=== PATIENT | female | born 1950 | race African-American/Black ===

== ENCOUNTER 2017-02-20 05:11 | Inpatient (IN) | payer MEDICARE, BC ==
[2017-02-08 10:15] LABS: BASOPHILS 0.2 %; BASOPHILS ABSOLUTE 0.01 10/3/uL (0.0-0.16); EOSINOPHILS 0.6 %; EOSINOPHILS ABSOLUTE 0.03 10/3/uL (0.0-0.53); HEMATOCRIT 38.2 % (36.0-48.0); HEMOGLOBIN 12.3 g/dL (12.0-16.0); IMMATURE GRANULOCYTES 0.4 %; IMMATURE GRANULOCYTES ABSOLUTE 0.02 10/3/uL (0.0-0.11); LYMPHOCYTES 17.4 %; LYMPHOCYTES ABSOLUTE 0.95 10/3/uL (0.67-4.30); MEAN CORPUS HGB CONC 32.2 g/dL (32.0-36.0); MEAN CORPUSCULAR HEMOGLOB 28.7 pg (26.0-34.0); MEAN CORPUSCULAR VOLUME 89.3 fL (80-100); MEAN PLATELET VOLUME 9.1 fL (9.2-13.0); MONOCYTES 6.1 %; MONOCYTES ABSOLUTE 0.33 10/3/uL (0.21-1.20); NEUTROPHILS 75.3 %; NEUTROPHILS ABSOLUTE 4.11 10/3/uL (2.02-8.40); PLATELET COUNT 271 10/3/uL (150-400); RBC DISTRIBUTION WIDTH 14.6 % (12.0-16.0); RED CELL COUNT 4.28 10/6/uL (4.0-5.6); WHITE BLOOD CELLS 5.5 10/3/uL (4.5-10.5)
[2017-02-08 10:20] LABS: MANUAL DIFF NO %
[2017-02-08 10:21] LABS: PROTIME (NOT ORD) 13.5 SEC (12.0-14.5)
[2017-02-08 10:36] LABS: A/G RATIO 0.9 (0.7-1.9); ALBUMIN 3.5 G/DL (3.5-5.0); ALKALINE PHOSPHATASE 94 U/L (45-117); BUN (BLOOD UREA NITROGEN) 17 MG/DL (6-23); CALCIUM, SERUM 8.8 MG/DL (8.5-10.4); CHLORIDE, SERUM 108 MMOL/L (96-112); CO2 (CARBON DIOXIDE) 27 MMOL/L (24-34); CREATININE 0.68 MG/DL (0.55-1.02); GFR AFRICAN AMERICAN 104 ML/MIN (>=60); GFR NON AFRICAN AMERICAN 90 ML/MIN (>=60); GLOBULIN 3.9 G/DL (2.5-4.1); GLUCOSE, SERUM 99 MG/DL (60-99); POTASSIUM, SERUM 4.6 MMOL/L (3.5-5.3); SGOT(AST) 13 U/L (5-40); SGPT(ALT) 28 U/L (5-65); SODIUM, SERUM 142 MMOL/L (135-148); TOTAL BILIRUBIN 0.2 MG/DL (0-1.2); TOTAL PROTEIN 7.4 G/DL (6.0-8.5)
[2017-02-08 10:43] LABS: ASCORBIC ACID (UR NOT ORDER) NEG (NEG); BILIRUBIN, URINE NEGATIVE (NEG); KETONE, URINE NEGATIVE (NEG); LEUKOCYTE ESTERASE(NOT OR SMALL (NEG); WBC (NOT ORDERED) (RFLEX) 21 (0-5)
--- NOTE | ~2017-02-20 | DS ---
Discharge Summary [facility] [address] [place]. [address] NAME: CINDI SOLOMON : 46 STATUS : DIS IN PAT#: [id number] AGE: 66 ADM/REG DATE : 02/20/17 MR#: [id number] REPORT SERV DATE: 03/01/17 DICTATED BY: FAMILIA COLES DATE: 02/28/17 REPORT STATUS : Draft TRANSCRIBED BY: [place] DATE: 02/28/17 Data Collection from hospitalization DISCHARGE DIAGNOSES: 1. Severe varus osteoarthritis of the right knee. 2. Gastroesophageal reflux disease. 3. Hiatal hernia. 4. Hyperlipidemia. 5. History of breast cancer in 2011, status post chemo and radiation therapy. 6. Nzm-dhafsac-mkiudcohl diabetes mellitus. 7. Obesity. 8. Hypertension. CONSULTATIONS: None. PROCEDURES PERFORMED: Right total knee arthroplasty, 02/20/2017. PATHOLOGY: MEDICATIONS: Arimidex 1 mg daily, Caltrate 600 mg twice daily, vitamin D3 of 5000 units daily, ferrous sulfate 325 mg daily, Xalatan 1 drop both eyes at bedtime, Prinivil 10 mg every morning, multiple vitamin without minerals 1 daily, Glucophage 1000 mg with breakfast and supper, Coumadin as directed, Prevacid 30 mg daily, Crestor 10 mg at bedtime, fish oil 1000 mg daily, vitamin B12 of 250 mcg daily, hydrocodone 7.5/325 one or two every 4 to 6 hours as needed, and Zofran 4 mg every 6 hours as needed. CONDITION AT DISCHARGE: Upon discharge, she did appear to be doing well and had no complaints. DISPOSITION: She was discharged home to continue an 1800-calorie ADA diet with activity as discussed. FOLLOWUP: She was to follow up with me in [facility] office on 03/07/2017, [facility] 02/25/2017, follow up with the [facility] for lab work to adjust Coumadin on 02/25/2017. HOSPITAL COURSE: This 66-year-old female was seen in the clinic with severe varus osteoarthritis of the right knee. She had an unremitting pain which had been refractory to medical management. She presented requesting a right total knee arthroplasty. The risks and benefits of surgery were discussed with the patient. She was agreeable to proceed. She was admitted for this and further treatment. Upon admission to the hospital, she had been taken to the operating room where she did undergo the above procedure. She tolerated this well was transferred to the recovery room. On postop day #1, she did appear to be doing well and had been evaluated by Physical Therapy. She had been placed on oral pain medications and was felt to be medically stable. On postop day #2, she continued to do well and had no new complaints. On postop day #3, her INR was at 1.5. She did have complaints of the pain medications making her nauseated and too sleepy and did state that she could not take hydrocodone and that tramadol was not strong enough. Her pain medications were Discharge Summary [facility] [id number] [facility] [place]. [address] NAME: CINDI SOLOMON : 46 STATUS : DIS IN PAT#: [id number] AGE: 66 ADM/REG DATE : 02/20/17 MR#: [id number] REPORT SERV DATE: 03/01/17 DICTATED BY: FAMILIA COLES DATE: 02/28/17 REPORT STATUS : Draft TRANSCRIBED BY: [place] DATE: 02/28/17 therefore changed. She did continue to do well and was then discharged on 02/23/2017 with the above instructions. Information collected by: Laurence MartinezH.I.T. I submit the above information as my discharge summary. RAFAELA/[place] Familia Coles M.D. / [id number] CC: Vi Gutierrez STEVEN NICHOLAS
--- NOTE | ~2017-02-20 | OP ---
Record Of Operation [facility] [address] [place]. [address] NAME: CINDI SOLOMON : 46 STATUS : ADM IN [facility]#: [id number] AGE: 66 ADM/REG DATE : 02/20/17 MR#: [id number] REPORT SERV DATE: 02/20/17 DICTATED BY: FAMILIA COLES DATE: 02/20/17 REPORT STATUS : Draft TRANSCRIBED BY: MODL DATE: 02/20/17 DATE OF PROCEDURE: 02/20/2017 PREOPERATIVE DIAGNOSIS: Severe varus osteoarthritis of the right knee. POSTOPERATIVE DIAGNOSIS: Severe varus osteoarthritis of the right knee. PROCEDURE: Right total knee arthroplasty. SURGEON: Familia Coles M.D. [employer]: Peter Cuba. ANESTHESIA: Spinal with MAC. ESTIMATED BLOOD LOSS: 100 mL. COMPLICATIONS: None. DRAINS: ConstaVac x1. TOURNIQUET TIME: Approximately 70 minutes. IMPLANTS: [employer] Ellis Attune size 4 posterior stabilized right femoral component, a size 3 modular tibial tray, with a 6 mm thick posterior stabilized tibial polyethylene insert, the patella was a 35 mm patella. All components were cemented in place with [employer] Simplex bead set bone cement. INDICATIONS FOR SURGERY: The patient is a 66-year-old female with severe varus osteoarthritis of the right knee. She has had unremitting pain, which has been refractory to medical management. She presents requesting the above-mentioned procedure. Risks of the procedure as detailed in the history and physical, and operative consent were discussed prior to proceeding. She fully understood and has requested to proceed. DESCRIPTION OF PROCEDURE: The patient was brought to the operating room and after induction of anesthesia, was positioned in the supine position. All appropriate pressure points were padded. The operative knee was then prepped and draped in the usual sterile fashion. Time out was performed confirming the appropriate surgical side and site. The leg was exsanguinated with an Linwood wrap and the tourniquet inflated to 350 mmHg pressure. A medial parapatellar approach to the knee was performed. The skin and cutaneous tissues were incised sharply in the midline with a #10 blade. Electrocautery was used as needed to maintain hemostasis. The retinaculum was divided and the extensor mechanism exposed. A median parapatellar arthrotomy was carried out. The medial tibia was exposed subperiosteally and the patellofemoral ligaments divided. The patella was then subluxated laterally and the knee carefully flexed. The knee was Record Of Operation [facility] [id number] [place]. [address] NAME: CINDI SOLOMON : 46 STATUS : ADM IN PAT#: [id number] AGE: 66 ADM/REG DATE : 02/20/17 MR#: [id number] REPORT SERV DATE: 02/20/17 DICTATED BY: FAMILIA COLES DATE: 02/20/17 REPORT STATUS : Draft TRANSCRIBED BY: OH DATE: 02/20/17 d brided of all osteophytes, meniscal remnants in the anterior and posterior cruciate ligaments. Attention was then turned to the distal femur. The intramedullary guide was set at 5 degrees of valgus and secured to the distal femur. The distal femoral resection was then carried out. The femur was then sized to the appropriate block as determined intraoperatively and from templating. The AP cutting block was secured in such a way as to create matched distal and posterior femoral resections in the appropriate rotation. The anterior and posterior femoral cuts were made, chamfer cuts were completed and the box was created for the posterior stabilized femoral component. Attention was then turned to the tibia. The extramedullary alignment guide was set a neutral varus/valgus to match the patient's [place] posterior tibial slope. The tibia was resected, removing 2 to 3 mm, from the most affected side. The tibial fragment was then removed. Attention was then turned to the posterior aspect of the knee and any remaining posterior femoral osteophytes or meniscal remnants were d brided. The patella was then everted and a uniform resection created taking the thickness of the planned patellar component. The cut was checked with a caliper to be sure of the appropriate resection level. The patella was then finally sized and three holes drilled for an oval domed three peg patella. At this point, the varus/valgus alignment of the knee was accessed. The appropriate releases were performed to balance the knee. A trial reduction was performed. The knee came to a full extension. There was 2 to 3 mm of opening to both varus and valgus stress at 30 and 90 degrees of flexion and normal patellar tracking. At this point, all trial components were removed and the final tibial preparation performed. The bony surfaces were copiously irrigated with normal saline and dried and the final components cemented in place. Once the cement had fully cured, the knee was carefully inspected and all extruded cement fragments were removed. A trial reduction was once again performed. Range of motion and stability of the knee were unchanged. The true tibial insert was then impacted in the clean tibial tray. A drain was placed deep through the arthrotomy and the knee was once again irrigated with pulsatile lavage normal saline. The arthrotomy was repaired using interrupted 1-0 Vicryl suture in a [id number] fashion. The subcutaneous tissues were approximated with interrupted 2-0 Vicryl suture, the skin stapled. A sterile dressing was applied. The tourniquet was deflated and the patient was taken to the Recovery Room in stable condition. POSTOP PLAN: The patient is to be weightbearing as tolerated with physical therapy to be started per total knee arthroplasty protocol. The patient will be on Coumadin and mechanical deep venous thrombosis prophylaxis. HARIS/[place] Familia Record Of Operation [address] [address] NAME: CINDI SOLOMON : 46 STATUS : ADM IN [facility]#: [id number] AGE: 66 ADM/REG DATE : 02/20/17 MR#: [id number] REPORT SERV DATE: 02/20/17 DICTATED BY: FAMILIA COLES DATE: 02/20/17 REPORT STATUS : Draft TRANSCRIBED BY: [place] DATE: 02/20/17 Vi Coles / [id number] CC: Familia Coles M.D.
[~2017-02-20 05:11] MED LIST: ACET500CAP PO; ARIMIDEX1 PO; ASA5GR PO; B12250T PO; CALTRA600D PO; CRESTOR10 PO; FERROUS SULF325 M1 PO; FISH-EPA1000 MG PO; GLUCOPHAGE1000 MG PO; MULTIPLE VIT PO; PREV30 PO; PRIN10 PO; VITAMIN D31000 UNIT PO; VOLT50 PO; XALAT OPH
[2017-02-21 04:24] LABS: HEMOGLOBIN 10.1 g/dL (12.0-16.0)
[2017-02-21 04:27] LABS: HEMATOCRIT 30.8 % (36.0-48.0)
[2017-02-21 04:33] LABS: INTERNATIONAL NORMAL RATI 1.1 UNITS (-); PROTIME (NOT ORD) 13.6 SEC (12.0-14.5)
[2017-02-21 04:39] LABS: CALCIUM, SERUM 9.1 MG/DL (8.5-10.4); CHLORIDE, SERUM 110 MMOL/L (96-112); CO2 (CARBON DIOXIDE) 29 MMOL/L (24-34); CREATININE 0.63 MG/DL (0.55-1.02); GFR AFRICAN AMERICAN 107 ML/MIN (>=60); GFR NON AFRICAN AMERICAN 92 ML/MIN (>=60); GLUCOSE, SERUM 107 MG/DL (60-99); SODIUM, SERUM 145 MMOL/L (135-148)
[2017-02-21 04:40] LABS: BUN (BLOOD UREA NITROGEN) 12 MG/DL (6-23); POTASSIUM, SERUM 3.5 MMOL/L (3.5-5.3)
[2017-02-22 05:56] LABS: HEMATOCRIT 29.6 % (36.0-48.0); HEMOGLOBIN 9.6 g/dL (12.0-16.0)
[2017-02-22 06:06] LABS: INTERNATIONAL NORMAL RATI 1.5 UNITS (-)
[2017-02-22 06:10] LABS: PROTIME (NOT ORD) 17.7 SEC (12.0-14.5)
[2017-02-22] MEDS ORDERED: ZOFRAN4 PO (11:06)
[2017-02-22] MEDS ORDERED: NORCO1 TA2 PO (11:06)
[2017-02-22] MEDS ORDERED: COUMADIN3 MG PO (11:07)
[2017-02-23 08:18] LABS: HEMATOCRIT 28.5 % (36.0-48.0)
[2017-02-23 08:23] LABS: INTERNATIONAL NORMAL RATI 1.6 UNITS (-)
== END 2017-02-23 11:47 | disposition home or self-care (01) | DRG 470 ==
LOC: SDC/OF 05:11 → PACU 09:13 → 3JRC 10:21
PROVIDERS: Specialist
PROC: 3E0T3CZ (ICD-10-PCS; 2017-02-20)
PROC: 0SRC0J9 Replacement of Right Knee Joint with Synthetic Substitute, Cemented, Open Approach (ICD-10-PCS; principal; 2017-02-20 06:30)
DX: M17.11 Unilateral primary osteoarthritis, right knee (principal); E24.9 Cushing's syndrome, unspecified; I10 Essential (primary) hypertension; E11.9 Type 2 diabetes mellitus without complications; E78.5 Hyperlipidemia, unspecified; K21.9 Gastro-esophageal reflux disease without esophagitis; K44.9 Diaphragmatic hernia without obstruction or gangrene; F41.9 Anxiety disorder, unspecified; G89.29 Other chronic pain; E66.9 Obesity, unspecified; Z85.3 Personal history of malignant neoplasm of breast; Z92.21 Personal history of antineoplastic chemotherapy; Z92.3 Personal history of irradiation; Z68.34 Body mass index [BMI] 34.0-34.9, adult; Z79.899 Other long term (current) drug therapy; Z79.82 Long term (current) use of aspirin; Z79.84 Long term (current) use of oral hypoglycemic drugs; Z90.49 Acquired absence of other specified parts of digestive tract; Z98.890 Other specified postprocedural states; Z83.3 Family history of diabetes mellitus; Z82.49 Family history of ischemic heart disease and other diseases of the circulatory system
CPT/HCPCS: 36415; 71020; 80048; 80053; 81001; 82962; 83036; 85014; 85018; 85025; 85610; 85730; 86850; 86900; 86901; 87077; 87086; 87186; 87641; 88305; 88311; 93005; 97110-GP; 97116-GP; 97150-GP; 97161-GP; 97165-GO; A9270-GY; C1776; G8978-CK-GP; G8979-CI-GP; G8987-CJ-GO; G8988-CJ-GO; G8989-CJ-GO; J0690; J1885; J2250; J2274; J2405; J2795; J3010